=== PATIENT | female | born 1935 | race Caucasian/White ===

== ENCOUNTER 2019-01-06 17:40 | Inpatient (IN) | payer MEDICARE, BC, SELFPAY ==
--- NOTE | 2019-01-06 | DI.ECHO.S_ITS ---
[facility]---------+ [facility] +---------+ : : [address] : : : : [id number] : : : : Phone: [phone] Echocardiogram Report + + :Name: SHAHANA ROBLEDO Study Date: 01/07/2019 Height: 63 in : :[facility] Weight: 103 lb : : Gender: Female BSA: 1.5 m2 : :: 1935 Age: 83 yrs BP: 115/53 mmHg: :Reason For Study: Abnormal ECG : : Performed By: Gertrudis Walker : :Referring: GETACHEW LUQUE : + + Interpretation Summary The left ventricle is normal in size. The ejection fraction is estimated to be 65-70%. There has been no significant change in LVEF since the previous study. The right ventricle is grossly normal size. The right ventricular systolic function is normal. There is mild aortic regurgitation. Compared to the prior echo study, there has been no change in the severity of aortic regurgitation. There is mild to moderate tricuspid regurgitation. Compared to the prior echo exam, there has been an increase in TR severity. The right ventricular systolic pressure is estimated to be at least 34 mmHg based on an estimated right atrial pressure of 3 mm Hg. Multiple large left renal cysts were noted. Procedure: A two-dimensional transthoracic echocardiogram with color flow and Doppler was performed. The study quality was technically adequate. Comparison is made with the echocardiogram of 06-26-10. The patient was in normal sinus rhythm during the exam. Left Ventricle: The left ventricle is normal in size. There is normal left ventricular wall thickness. There is no thrombus. A false chord is noted (normal variant). The ejection fraction is estimated to be 65-70%. There has been no significant change since the previous study. There are no focal wall motion abnormalities. Diastolic parameters suggest a relaxation abnormality of the left ventricle, consistent with probable normal filling pressures. Right Ventricle: The right ventricle is grossly normal size. A calcified moderator band is seen in the right ventricle. The right ventricular systolic function is normal. Atria: The left atrial size is normal. The left atrium has significantly decreased in size since the prior echo exam. Right atrial size is normal. The interatrial septum is intact with no evidence for an atrial septal defect. Mitral Valve: There is mild mitral annular calcification. There is trace mitral regurgitation. Aortic Valve: The aortic valve is grossly normal. The aortic valve is not well visualized. The aortic valve opens well. There is no aortic valve stenosis. There is mild aortic regurgitation. Compared to the prior echo study, there has been no change in the severity of aortic regurgitation. Tricuspid Valve: The tricuspid valve leaflets are thin and pliable. There is mild to moderate tricuspid regurgitation. The right ventricular systolic pressure is estimated to be at least 34 mmHg based on an estimated right atrial pressure of 3 mm Hg. Compared to the prior echo exam, there has been an increase in TR severity. Pulmonic Valve: The pulmonic valve is not well visualized. Great Vessels: The aortic root is normal size. The dimensions of the ascending aorta are normal. The aortic arch is normal in size. The IVC is of normal diameter and collapses greater than 50% with a sniff. This suggests a low right atrial pressure of 3 mm Hg. Pericardium/ Pleura There is no pericardial effusion. There is no pleural effusion. MMode/2D Measurements & Calculations LVIDd: 3.8 cm Ao root diam: 2.9 cm LVIDs: 2.6 cm asc Aorta Diam: 3.0 cm FS: 32.1 % Ao Arch Diam (Prox Trans): 2.2 cm IVSd: 0.86 cm LVPWd: 0.75 cm LV nugent. diameter/BSA (cm/m^2): 2.6 LV sys. diameter/BSA (cm/m^2): 1.8 LA dimension: 2.2 cm RA long axis: 4.4 cm LA A2 area: 11.4 cm2 RA area: 15.1 cm2 LA A4 area: 12.1 cm2 RA vol: 44.3 ml LA length (vol): 5.0 cm RA : 30.4 ml/m2 LA vol: 23.3 ml IVC diam: 1.4 cm LA vol index: 16.0 ml/m2 RVDd major: 3.5 cm RVD1 (basal): 3.2 cm RVD2 (mid): 2.4 cm Doppler Measurements & Calculations Ao V2 max: 166.2 cm/sec MV E max rafiq: 49.2 cm/sec Ao V2 mean: 101.9 cm/sec MV A max rafiq: 64.0 cm/sec Ao max P.1 mmHg MV E/A: 0.77 Ao mean P.0 mmHg Med Peak E' Rafiq: 4.6 cm/sec Ao V2 VTI: 34.5 cm E/E' med: 10.6 Lat Peak E' Rafiq: 5.8 cm/sec E/E' lat: 8.5 E/e' average: 9.6 MV dec time: 0.29 sec MV P1/2t: 86.2 msec TR max rafiq: 277.0 cm/sec MV P1/2t max rafiq: 49.5 cm/sec TR max P.7 mmHg MVA(P1/2t): 2.6 cm2 PA V2 max: 67.1 cm/sec PA V2 mean: 40.0 cm/sec PA mean P.78 mmHg PA Accel Time: 0.17 sec Reading Physician:GIULIANO
[2019-01-06 17:49] VITALS: BP 174/86; PULSE 99; RESP 15; TEMP 37.2; O2SAT 93
--- NOTE | 2019-01-06 17:49 | DI.RAD.S_ITS ---
PROCEDURE: XR CHEST 2V INDICATIONS: chills, back pain TECHNIQUE: 2 views of the chest were acquired. COMPARISON: None. FINDINGS: Surgical changes and devices: Bilateral breast implants are noted. Lungs and pleura: Streaky opacity is present within the middle lobe as seen on lateral view. Mediastinum: Mediastinal contours are normal. Heart size is normal. Bones and chest wall: No suspicious bony abnormalities. Soft tissues appear unremarkable. IMPRESSION: Streaky middle lobe opacity seen on lateral view. While this could represent atelectasis, pneumonia should be considered. Dictated by: Celeste Waller M.D. on 01/06/2019 at 18:04 Approved by: Celeste Waller M.D. on 01/06/2019 at 18:05
--- NOTE | 2019-01-06 17:56 | PC.NURSE ---
Pt tells staff that she is allergic to everything. [facility] does not carry a list. Dr office is closed. Will attempt to get records from [facility] in [place]
--- NOTE | 2019-01-06 18:12 | ED.BACK ---
HPI - Back Pain/Injury <IGLESIA Padgett - Last Filed: 01/06/19 22:42> General Chief Complaint: Back Pain/Injury Stated Complaint: BODY ACHES, CHILLS, BACK PAIN Time Seen by Provider: 01/06/19 18:06 Source: patient and family Mode of arrival: ambulatory Limitations: no limitations History of Present Illness HPI Narrative: 83-year-old female with a history of pneumonia, hydronephrosis, chronic alcohol abuse, and low-sodium presents to the emergency department complaining of right lower back pain, productive cough, chest congestion, and decreased appetite over the past 2 days. Yesterday she had an episode of substernal chest pain that started when she was sitting down and lasted for few minutes, pain slightly resolved after taking nitro that she was given. States she has associated chills, nausea, decreased appetite, and dry heaves yesterday that has resolved today. Denies syncope, vomiting today, abdominal pain, dysuria, blood in urine, diaphoresis, chest pain today, blood in stool, or fevers today. Patient states that she had a cardiac workup a while ago in [place], she does not remember what it was for or what tests were done at that time. Related Data Home Medications Medication Instructions Recorded Confirmed aspirin 3 tab PO PRN PRN 01/06/19 01/06/19 levothyroxine 25 mcg PO DAILY 01/06/19 01/06/19 nitroglycerin 1 tab SUBLINGUAL [id number] PRN 01/06/19 01/06/19 Allergies Allergy/AdvReac Type Severity Reaction Status Date / Time gentamicin Allergy Hives Verified 01/06/19 22:07 Penicillins Allergy unknown Verified 01/06/19 22:07 sulfamethoxazole Allergy Hives Verified 01/06/19 22:07 trimethoprim Allergy Hives Verified 01/06/19 22:07 albuterol AdvReac SOB, Verified 01/06/19 22:07 shaking lisinopril AdvReac Angioedema Verified 01/06/19 22:07 morphine AdvReac difficult Verified 01/06/19 22:07 to wake and pt thought she was going to Review of Systems <IGLESIA Padgett - Last Filed: 01/06/19 22:42> Review of Systems REVIEW OF SYSTEMS: GENERAL: Complains of fevers, see HPI. HENT: No head trauma, hearing loss, rhinorrhea, epistaxis, sinus pressure, sore throat, or dysphagia. EYES: No loss of vision, double vision, eye pain, or irritation. CARDIOVASCULAR:Chest pain complaint, see HPI. RESPIRATORY: No shortness of breath, cough, or wheeze. GASTROINTESTINAL: C/o nausea and dry heaves, see HPI. GENITOURINARY: Right flank pain, NO urinary incontinence, hesitancy, frequency, or dysuria. No vaginal discharge or dyspareunia. MUSCULOSKELETAL: No pain, weakness, or deformities. INTEGUMENTARY: No rash, lesions, or pruritus. NEURO: No numbness, tingling, memory loss, confusion, or headaches. PSYCH: No behavior or mood changes. ENDOCRINOLOGY: No hair loss of temperature intolerance. HEMATOLOGY: No easy bruising. LYMPHATIC: No lymphadenopathy. PFSH <IGLESIA Padgett - Last Filed: 01/06/19 22:42> Medical History Asthma (Acute) Closed hip fracture (Acute) Coronary artery disease (Acute) HTN (hypertension) (Acute) Hydronephrosis (Acute) Hypothyroidism (Acute) Osteoporosis (Acute) Surgical History History of bilateral breast implants (Acute) History of breast biopsy (Acute) History of coronary angiogram (Acute) History of hip surgery (Acute) History of hysterectomy (Acute) History of renal stent (Acute) Status post removal of thyroid nodule (Acute) Family History (Updated 01/06/19 @ 21:56 by IGLESIA Moyer) Father Myocardial infarction Ruptured aortic aneurysm Mother Colon cancer Brother Medical history unknown Sister In good health Social History household members: none Smoking Status: Former smoker alcohol intake: current Family History Father Myocardial infarction Ruptured aortic aneurysm Mother Colon cancer Brother Medical history unknown Sister In good health Social History household members: none Smoking Status: Former smoker alcohol intake: current Exam <IGLESIA Padgett - Last Filed: 01/06/19 22:42> Initial Vital Signs Initial Vital Signs: Vital Signs Temperature 98.9 F 05/30/19 17:49 Pulse Rate 99 H 01/06/19 17:49 Respiratory Rate 15 01/06/19 17:49 Blood Pressure 174/86 H 01/06/19 17:49 Pulse Oximetry 93 01/06/19 17:49 PHYSICAL EXAMINATION: GENERAL: Well groomed, alert, and cooperative. Appears underweight. Answers questions promptly and appropriately. Vital signs noted. HENT: Normocephalic, atraumatic. Ear canals patent, tympanic membranes normal without irritation or effusion, crisp light reflex present. Oral mucosa is pink and moist, no caries or lesions present. Pharynx without erythema. EYES: PERRLA, EOMIs, conjunctiva pink, sclera white, no periorbital swelling. NECK: Full range of motion, nontender. LYMPH: No lymphadenopathy. CHEST: Normal to inspection and without deformities. CARDIOVASCULAR: S1 and S2 sounds normal. Regular rate and rhythm, no murmurs, clicks, or bruits. No pedal edema. RESPIRATORY: Normal respiratory rate, trachea midline, airway patent. No stridor, nasal flaring or accessory muscle use. Lungs are clear in all goff without wheeze, rhonchi, or crackles. GASTROINTESTINAL: Bowel sounds normoactive. Abdomen is soft and non-tender. No organomegaly. MUSCULOSKELETAL: Normal gait and coordination. Equal tone and mass bilaterally. No spinal tenderness or deformities. EXTREMITIES: CMS intact. No deformities. SKIN: Warm, dry, soft, appropriate color for ethnicity. No lesions, rashes, or wounds. NEURO: Alert and Oriented X 3. CN III-XII intact. Good coordination. No ataxia, or sensory deficits, or cognitive issues. PSYCH: Appropriate affect and mood. <Neal Mendez DO - Last Filed: 01/06/19 23:07> Initial Vital Signs Initial Vital Signs: Vital Signs Temperature 98.9 F 01/06/19 17:49 Pulse Rate 99 H 01/06/19 17:49 Respiratory Rate 15 01/06/19 17:49 Blood Pressure 174/86 H 01/06/19 17:49 Pulse Oximetry 93 01/06/19 17:49 Scores <IGLESIA Padgett - Last Filed: 01/06/19 22:42> HEART Score Heart Score history: Moderately Suspicious Heart Score EKG: Non-Specific repolarization disturbance Heart Score Age: > or = 65 years old Heart Score risk factors: 1-2 risk factors Heart Score troponin: < or = to normal limit Heart Score Total: 5 Course <Carleen IGLESIA Edi - Last Filed: 01/06/19 22:42> Decision to Admit Date: 01/06/19 Decision to Admit time: 20:30 Orders Ordered: ED Orders 01/06/19 17:49 CXR [XR chest 2V] Stat 01/06/19 18:35 EKG-12 Lead Stat 01/06/19 18:45 Complete Blood Count AUTO DIFF Stat Comprehensive Metabolic Panel Stat Troponin & CK Cardiac Panel Stat 01/06/19 21:31 Consult to Dietitian, Adult Routine 01/06/19 21:32 Consult to Discharge Planning Routine 01/06/19 21:42 Consult to Respiratory Therapy Evaluate & Treat 01/06/19 21:45 Procalcitonin Routine Urine Microscopic Routine 01/06/19 23:55 Partial Thromboplastin Time Urgent Prothrombin Time INR Urgent 01/07/19 Basic Metabolic Panel Routine Complete Blood Count AUTO DIFF Routine Lipid Panel Routine Procalcitonin Routine TSH w/ Reflex to FT4 Routine Troponin I Routine Acetaminophen (Tylenol) 650 mg PO Q6HR PRN PRN Reason: As Needed for Fever/Mild Pain Al Hydrox/Mg Hydrox/Simethicone (Maalox Plus) 30 ml PO Q6HR PRN PRN Reason: Dyspepsia Albuterol (Ventolin) 2.5 mg INH [id number] PRN PRN Reason: Shortness Of Breath Albuterol/Ipratropium (Duoneb) 3 ml INH RTQ6HR PRN PRN Reason: Shortness Of Breath Aspirin (Aspirin Ec) 81 mg PO DAILY [facility] Last Admin: 01/06/19 22:57 Dose: 81 mg Calcium Carbonate (Tums) 1,000 mg PO Q4HR PRN PRN Reason: Dyspepsia Enoxaparin Sodium (Lovenox) 40 mg SUBCUT DAILY [facility] Levofloxacin (Levaquin) 750 mg in 150 mls @ 100 mls/hr IV Q24H [facility] Last Admin: 01/06/19 22:57 Dose: 100 mls/hr Sodium Chloride (Normal Saline 0.9%) 1,000 mls @ 75 mls/hr IV CONT [facility] Last Admin: 01/06/19 22:57 Dose: 75 mls/hr Levothyroxine Sodium (Synthroid) 25 mcg PO DAILY [facility] Naloxone HCl (Narcan) 0.2 mg IV Q2MIN PRN PRN Reason: Opiate Reversal Nitroglycerin (Nitrostat) 0.4 mg SL [id number] PRN PRN Reason: Chest Pain Ondansetron HCl (Zofran) 4 mg IV Q8HR PRN PRN Reason: Nausea And Vomiting Discontinued Medications Sodium Chloride (Normal Saline 0.9%) 1,000 mls @ 500 mls/hr IV BOLUS ONE Stop: 01/06/19 20:34 Last Infusion: 01/06/19 20:52 Dose: 0 mls/hr Admin: 01/06/19 18:50 Dose: 500 mls/hr Morphine Sulfate (Morphine) 2 mg IV Q4HR PRN PRN Reason: Pain, Moderate (4-6) Consultations Consultation #1: Consulted Dr. Knight at [facility] concerning EKG changes (ST depression in V4 and V5). Discussed inability to obtain previous records from clinic in [place]. Discussed patient's risk factors. He agrees that patient could benefit from admission and further testing. Time: 20:00 Consultation #2: Spoke with Aldo Tomlinson about possible admit. Discussed EKG changes and inability to obtain records, discussed patient's risk factors, discussed patient's labs. Decision to admit made. Time: 20:30 Time: 19:00 Additional Consultation(s): Patient staffed with Dr. Mendez who agrees with plan. Vital Signs - 8 hr 01/06/19 17:49 01/06/19 21:16 01/06/19 21:30 Temperature 98.9 F 98.2 F Pulse Rate 99 H 95 H 100 H Respiratory Rate 15 18 20 Blood Pressure 174/86 H 163/82 H 168/86 H Pulse Oximetry 93 93 93 <Neal Mendez, DO - Last Filed: 01/06/19 23:07> Orders Ordered: ED Orders 01/06/19 17:49 CXR [XR chest 2V] Stat 01/06/19 18:35 EKG-12 Lead Stat 01/06/19 18:45 Complete Blood Count AUTO DIFF Stat Comprehensive Metabolic Panel Stat Troponin & CK Cardiac Panel Stat 01/06/19 21:31 Consult to Dietitian, Adult Routine 01/06/19 21:32 Consult to Discharge Planning Routine 01/06/19 21:42 Consult to Respiratory Therapy Evaluate & Treat 01/06/19 21:45 Procalcitonin Routine Urine Microscopic Routine 01/06/19 23:55 Partial Thromboplastin Time Urgent Prothrombin Time INR Urgent 01/07/19 Basic Metabolic Panel Routine Complete Blood Count AUTO DIFF Routine Lipid Panel Routine Procalcitonin Routine TSH w/ Reflex to FT4 Routine Troponin I Routine Acetaminophen (Tylenol) 650 mg PO Q6HR PRN PRN Reason: As Needed for Fever/Mild Pain Al Hydrox/Mg Hydrox/Simethicone (Maalox Plus) 30 ml PO Q6HR PRN PRN Reason: Dyspepsia Albuterol (Ventolin) 2.5 mg INH [id number] PRN PRN Reason: Shortness Of Breath Albuterol/Ipratropium (Duoneb) 3 ml INH RTQ6HR PRN PRN Reason: Shortness Of Breath Aspirin (Aspirin Ec) 81 mg PO DAILY [facility] Last Admin: 01/06/19 22:57 Dose: 81 mg Calcium Carbonate (Tums) 1,000 mg PO Q4HR PRN PRN Reason: Dyspepsia Enoxaparin Sodium (Lovenox) 40 mg SUBCUT DAILY [facility] Levofloxacin (Levaquin) 750 mg in 150 mls @ 100 mls/hr IV Q24H [facility] Last Admin: 01/06/19 22:57 Dose: 100 mls/hr Sodium Chloride (Normal Saline 0.9%) 1,000 mls @ 75 mls/hr IV CONT [facility] Last Admin: 01/06/19 22:57 Dose: 75 mls/hr Levothyroxine Sodium (Synthroid) 25 mcg PO DAILY [facility] Naloxone HCl (Narcan) 0.2 mg IV Q2MIN PRN PRN Reason: Opiate Reversal Nitroglycerin (Nitrostat) 0.4 mg SL [id number] PRN PRN Reason: Chest Pain Ondansetron HCl (Zofran) 4 mg IV Q8HR PRN PRN Reason: Nausea And Vomiting Discontinued Medications Sodium Chloride (Normal Saline 0.9%) 1,000 mls @ 500 mls/hr IV BOLUS ONE Stop: 01/06/19 20:34 Last Infusion: 01/06/19 20:52 Dose: 0 mls/hr Admin: 01/06/19 18:50 Dose: 500 mls/hr Morphine Sulfate (Morphine) 2 mg IV Q4HR PRN PRN Reason: Pain, Moderate (4-6) Vital Signs - 8 hr 01/06/19 17:49 01/06/19 21:16 01/06/19 21:30 Temperature 98.9 F 98.2 F Pulse Rate 99 H 95 H 100 H Respiratory Rate 15 18 20 Blood Pressure 174/86 H 163/82 H 168/86 H Pulse Oximetry 93 93 93 MDM - Back Pain/Injury <IGLESIA Padgett - Last Filed: 01/06/19 22:42> Medical Records Attestation: I reviewed the patient's medical records. Lab Data Attestation: I reviewed the patient's lab results. Result diagrams: 01/06/19 18:45 01/06/19 18:45 Lab Results 01/06/19 01/06/19 01/06/19 Range/Units 18:45 18:45 21:45 WBC 10.9 (4.5-11.0) X10^3/uL RBC 4.15 (4.0-5.2) X10^6/uL Hgb 13.0 (12.0-16.0) g/dL Hct 39.0 (36-46) % MCV 94.1 (80-100) fL MCH 31.4 (26-34) PG MCHC 33.4 (30-36) % RDW 12.6 (11.6-14.8) % Plt Count 282 (150-400) X10^3/uL Neut % (Auto) 86.7 H (50-75) % Lymph % (Auto) 7.9 L (25-40) % [place] % (Auto) 5.1 (3-14) % Eos % (Auto) 0.0 L (2-4) % Baso % (Auto) 0.3 (0-2) % Neut # (Auto) 9500 H (4543-2547) /uL Lymph # (Auto) 900 L (9850-9459) /uL [place] # (Auto) 600 (0-900) /uL Eos # (Auto) 0 (0-450) /uL Baso # (Auto) 0 (0-100) /uL Sodium 131 L (137-145) mmol/L Potassium 4.0 (3.4-5.1) mmol/L Chloride 93 L (98-107) mmol/L Carbon Dioxide 26 (22-32) mmol/L BUN 12 (7-17) mg/dL Creatinine 0.70 (0.52-1.04) mg/dL Estimated GFR > 60.0 (>60) mL/min BUN/Creatinine Ratio 17.1 (6-22) Glucose 148 H (80-110) mg/dL Calcium 9.4 (8.4-10.2) mg/dL Total Bilirubin 1.4 H (0.2-1.3) mg/dL AST 25 (14-36) IU/L ALT 13 (9-52) IU/L Alkaline Phosphatase 78 (38-126) U/L Total Creatine Kinase 36 (30-135) U/L CK-MB (CK-2) TNP CK-MB (CK-2) Rel Index TNP Troponin I < 0.012 (0.01-0.034) ng/mL Total Protein 8.0 (6.3-8.2) g/dL Albumin 4.3 (3.5-5.0) g/dL Globulin 3.7 (1.7-4.1) g/dL Albumin/Globulin Ratio 1.2 (1.0-2.8) Urine RBC 0-1/hpf (0-5/HPF) Urine WBC 0-1/hpf (0-5/HPF) Ur Squamous Epith Cells 1-5 /hpf (0-5/HPF) Urine Bacteria Occasional (0-1) (None) Ur Culture Indicated? Cult not indicated Imaging Data Chest x-ray: Radiologist's impression: [address] [place] [id number] XRay Report Signed Patient: Grisel Puri#: [id number] : 1935Acct:[id number] Age/Sex: 83 / FDate of Service: 01/06/19 Loc: ED Accession Number: [id number] Procedure: XR chest 2V Ordering Provider: Carol Fierro MD PROCEDURE: XR CHEST 2V INDICATIONS: chills, back pain TECHNIQUE: 2 views of the chest were acquired. COMPARISON: None. FINDINGS: Surgical changes and devices: Bilateral breast implants are noted. Lungs and pleura: Streaky opacity is present within the middle lobe as seen on lateral view. Mediastinum: Mediastinal contours are normal. Heart size is normal. Bones and chest wall: No suspicious bony abnormalities. Soft tissues appear unremarkable. IMPRESSION: Streaky middle lobe opacity seen on lateral view. While this could represent atelectasis, pneumonia should be considered. Dictated by: Celeste Waller M.D. on 01/06/2019 at 18:04 Approved by: Celeste Waller M.D. on 01/06/2019 at 18:05 ECG Data Attestation: I personally reviewed and interpreted this ECG as follows: Interpretation: Rate of 79, LA interval 162, QTC 414. No axis deviation regular rate and rhythm. No ST elevation however ST depression noted in V4 and V5. This is a change from an old EKG done in 2008. Appropriate consults made. Dr. Mendez also reviewed EKG. [facility] Narrative Medical decision making narrative: Patient does not clinically appear to have pneumonia even though consolidation was shown on chest x-ray, due to absence of white blood cell count, absence of abnormal breath sounds, afebrile. However concern for acute coronary syndrome exists due to ST depression in V4 and V5, chest pain that was relieved with nitro, history of cardiac workups, risk factors of alcohol abuse, age, and history at hypertension as well as blood pressure measurements in the emergency department. After speaking with Dr. Knight with [facility] cardiology, consensus was that patient would benefit from admission and observation with possible further testing. <eNal Mendez, DO - Last Filed: 01/06/19 23:07> Lab Data Lab Results 01/06/19 01/06/19 01/06/19 Range/Units 18:45 18:45 21:45 WBC 10.9 (4.5-11.0) X10^3/uL RBC 4.15 (4.0-5.2) X10^6/uL Hgb 13.0 (12.0-16.0) g/dL Hct 39.0 (36-46) % MCV 94.1 (80-100) fL MCH 31.4 (26-34) PG MCHC 33.4 (30-36) % RDW 12.6 (11.6-14.8) % Plt Count 282 (150-400) X10^3/uL Neut % (Auto) 86.7 H (50-75) % Lymph % (Auto) 7.9 L (25-40) % [place] % (Auto) 5.1 (3-14) % Eos % (Auto) 0.0 L (2-4) % Baso % (Auto) 0.3 (0-2) % Neut # (Auto) 9500 H (7244-3529) /uL Lymph # (Auto) 900 L (5368-3632) /uL [place] # (Auto) 600 (0-900) /uL Eos # (Auto) 0 (0-450) /uL Baso # (Auto) 0 (0-100) /uL Sodium 131 L (137-145) mmol/L Potassium 4.0 (3.4-5.1) mmol/L Chloride 93 L (98-107) mmol/L Carbon Dioxide 26 (22-32) mmol/L BUN 12 (7-17) mg/dL Creatinine 0.70 (0.52-1.04) mg/dL Estimated GFR > 60.0 (>60) mL/min BUN/Creatinine Ratio 17.1 (6-22) Glucose 148 H (80-110) mg/dL Calcium 9.4 (8.4-10.2) mg/dL Total Bilirubin 1.4 H (0.2-1.3) mg/dL AST 25 (14-36) IU/L ALT 13 (9-52) IU/L Alkaline Phosphatase 78 (38-126) U/L Total Creatine Kinase 36 (30-135) U/L CK-MB (CK-2) TNP CK-MB (CK-2) Rel Index TNP Troponin I < 0.012 (0.01-0.034) ng/mL Total Protein 8.0 (6.3-8.2) g/dL Albumin 4.3 (3.5-5.0) g/dL Globulin 3.7 (1.7-4.1) g/dL Albumin/Globulin Ratio 1.2 (1.0-2.8) Urine RBC 0-1/hpf (0-5/HPF) Urine WBC 0-1/hpf (0-5/HPF) Ur Squamous Epith Cells 1-5 /hpf (0-5/HPF) Urine Bacteria Occasional (0-1) (None) Ur Culture Indicated? Cult not indicated Discharge Plan Departure Patient Disposition: Admitted as Observation Clinical Impression: Abnormal EKG, Lung consolidation Chest pain Qualifiers: Chest pain type: unspecified Qualified Code(s): R07.9 - Chest pain, unspecified Discharge Date/Time: 01/06/19 21:27 Interventions: ED Discharge Assessment Last Done: 01/06/19 21:16 Admit Date/Time: 01/06/19 20:51 Admit Provider: Masoud Tomlinson <Neal Mendez DO - Last Filed: 01/06/19 23:07> Cosign ED Attending Luisa Attestation: I was available for consultation during this patient's emergency department encounter
--- NOTE | 2019-01-06 18:43 | ED_ITS ---
HPI - Back Pain/Injury <IGLESIA Padgett - Last Filed: 01/06/19 22:42> General Chief Complaint: Back Pain/Injury Stated Complaint: BODY ACHES, CHILLS, BACK PAIN Time Seen by Provider: 01/06/19 18:06 Source: patient and family Mode of arrival: ambulatory Limitations: no limitations History of Present Illness HPI Narrative: 83-year-old female with a history of pneumonia, hydronephrosis, chronic alcohol abuse, and low-sodium presents to the emergency department complaining of right lower back pain, productive cough, chest congestion, and decreased appetite over the past 2 days. Yesterday she had an episode of substernal chest pain that started when she was sitting down and lasted for few minutes, pain slightly resolved after taking nitro that she was given. States she has associated chills, nausea, decreased appetite, and dry heaves yesterday that has resolved today. Denies syncope, vomiting today, abdominal pain, dysuria, blood in urine, diaphoresis, chest pain today, blood in stool, or fevers today. Patient states that she had a cardiac workup a while ago in [place], she does not remember what it was for or what tests were done at that time. Related Data Home Medications Medication Instructions Recorded Confirmed aspirin 3 tab PO PRN PRN 01/06/19 01/06/19 levothyroxine 25 mcg PO DAILY 01/06/19 01/06/19 nitroglycerin 1 tab SUBLINGUAL [id number] PRN 01/06/19 01/06/19 Allergies Allergy/AdvReac Type Severity Reaction Status Date / Time gentamicin Allergy Hives Verified 01/06/19 22:07 Penicillins Allergy unknown Verified 01/06/19 22:07 sulfamethoxazole Allergy Hives Verified 01/06/19 22:07 trimethoprim Allergy Hives Verified 01/06/19 22:07 albuterol AdvReac SOB, Verified 01/06/19 22:07 shaking lisinopril AdvReac Angioedema Verified 01/06/19 22:07 morphine AdvReac difficult Verified 01/06/19 22:07 to wake and pt thought she was going to Review of Systems <IGLESIA Padgett - Last Filed: 01/06/19 22:42> Review of Systems REVIEW OF SYSTEMS: GENERAL: Complains of fevers, see HPI. HENT: No head trauma, hearing loss, rhinorrhea, epistaxis, sinus pressure, sore throat, or dysphagia. EYES: No loss of vision, double vision, eye pain, or irritation. CARDIOVASCULAR:Chest pain complaint, see HPI. RESPIRATORY: No shortness of breath, cough, or wheeze. GASTROINTESTINAL: C/o nausea and dry heaves, see HPI. GENITOURINARY: Right flank pain, NO urinary incontinence, hesitancy, frequency, or dysuria. No vaginal discharge or dyspareunia. MUSCULOSKELETAL: No pain, weakness, or deformities. INTEGUMENTARY: No rash, lesions, or pruritus. NEURO: No numbness, tingling, memory loss, confusion, or headaches. PSYCH: No behavior or mood changes. ENDOCRINOLOGY: No hair loss of temperature intolerance. HEMATOLOGY: No easy bruising. LYMPHATIC: No lymphadenopathy. PFSH <IGLESIA Padgett - Last Filed: 01/06/19 22:42> Medical History Asthma (Acute) Closed hip fracture (Acute) Coronary artery disease (Acute) HTN (hypertension) (Acute) Hydronephrosis (Acute) Hypothyroidism (Acute) Osteoporosis (Acute) Surgical History History of bilateral breast implants (Acute) History of breast biopsy (Acute) History of coronary angiogram (Acute) History of hip surgery (Acute) History of hysterectomy (Acute) History of renal stent (Acute) Status post removal of thyroid nodule (Acute) Family History (Updated 01/06/19 @ 21:56 by IGLESIA Moyer) Father Myocardial infarction Ruptured aortic aneurysm Mother Colon cancer Brother Medical history unknown Sister In good health Social History household members: none Smoking Status: Former smoker alcohol intake: current Family History Father Myocardial infarction Ruptured aortic aneurysm Mother Colon cancer Brother Medical history unknown Sister In good health Social History household members: none Smoking Status: Former smoker alcohol intake: current Exam <IGLESIA Padgett - Last Filed: 01/06/19 22:42> Initial Vital Signs Initial Vital Signs: Vital Signs Temperature 98.9 F 05/30/19 17:49 Pulse Rate 99 H 01/06/19 17:49 Respiratory Rate 15 01/06/19 17:49 Blood Pressure 174/86 H 01/06/19 17:49 Pulse Oximetry 93 01/06/19 17:49 PHYSICAL EXAMINATION: GENERAL: Well groomed, alert, and cooperative. Appears underweight. Answers questions promptly and appropriately. Vital signs noted. HENT: Normocephalic, atraumatic. Ear canals patent, tympanic membranes normal without irritation or effusion, crisp light reflex present. Oral mucosa is pink and moist, no caries or lesions present. Pharynx without erythema. EYES: PERRLA, EOMIs, conjunctiva pink, sclera white, no periorbital swelling. NECK: Full range of motion, nontender. LYMPH: No lymphadenopathy. CHEST: Normal to inspection and without deformities. CARDIOVASCULAR: S1 and S2 sounds normal. Regular rate and rhythm, no murmurs, clicks, or bruits. No pedal edema. RESPIRATORY: Normal respiratory rate, trachea midline, airway patent. No stridor, nasal flaring or accessory muscle use. Lungs are clear in all goff without wheeze, rhonchi, or crackles. GASTROINTESTINAL: Bowel sounds normoactive. Abdomen is soft and non-tender. No organomegaly. MUSCULOSKELETAL: Normal gait and coordination. Equal tone and mass bilaterally. No spinal tenderness or deformities. EXTREMITIES: CMS intact. No deformities. SKIN: Warm, dry, soft, appropriate color for ethnicity. No lesions, rashes, or wounds. NEURO: Alert and Oriented X 3. CN III-XII intact. Good coordination. No ataxia, or sensory deficits, or cognitive issues. PSYCH: Appropriate affect and mood. <Neal Mendez DO - Last Filed: 01/06/19 23:07> Initial Vital Signs Initial Vital Signs: Vital Signs Temperature 98.9 F 01/06/19 17:49 Pulse Rate 99 H 01/06/19 17:49 Respiratory Rate 15 01/06/19 17:49 Blood Pressure 174/86 H 01/06/19 17:49 Pulse Oximetry 93 01/06/19 17:49 Scores <IGLESIA Padgett - Last Filed: 01/06/19 22:42> HEART Score Heart Score history: Moderately Suspicious Heart Score EKG: Non-Specific repolarization disturbance Heart Score Age: > or = 65 years old Heart Score risk factors: 1-2 risk factors Heart Score troponin: < or = to normal limit Heart Score Total: 5 Course <Carleen IGLESIA Eid - Last Filed: 01/06/19 22:42> Decision to Admit Date: 01/06/19 Decision to Admit time: 20:30 Orders Ordered: ED Orders 01/06/19 17:49 CXR [XR chest 2V] Stat 01/06/19 18:35 EKG-12 Lead Stat 01/06/19 18:45 Complete Blood Count AUTO DIFF Stat Comprehensive Metabolic Panel Stat Troponin & CK Cardiac Panel Stat 01/06/19 21:31 Consult to Dietitian, Adult Routine 01/06/19 21:32 Consult to Discharge Planning Routine 01/06/19 21:42 Consult to Respiratory Therapy Evaluate & Treat 01/06/19 21:45 Procalcitonin Routine Urine Microscopic Routine 01/06/19 23:55 Partial Thromboplastin Time Urgent Prothrombin Time INR Urgent 01/07/19 Basic Metabolic Panel Routine Complete Blood Count AUTO DIFF Routine Lipid Panel Routine Procalcitonin Routine TSH w/ Reflex to FT4 Routine Troponin I Routine Acetaminophen (Tylenol) 650 mg PO Q6HR PRN PRN Reason: As Needed for Fever/Mild Pain Al Hydrox/Mg Hydrox/Simethicone (Maalox Plus) 30 ml PO Q6HR PRN PRN Reason: Dyspepsia Albuterol (Ventolin) 2.5 mg INH [id number] PRN PRN Reason: Shortness Of Breath Albuterol/Ipratropium (Duoneb) 3 ml INH RTQ6HR PRN PRN Reason: Shortness Of Breath Aspirin (Aspirin Ec) 81 mg PO DAILY [facility] Last Admin: 01/06/19 22:57 Dose: 81 mg Calcium Carbonate (Tums) 1,000 mg PO Q4HR PRN PRN Reason: Dyspepsia Enoxaparin Sodium (Lovenox) 40 mg SUBCUT DAILY [facility] Levofloxacin (Levaquin) 750 mg in 150 mls @ 100 mls/hr IV Q24H [facility] Last Admin: 01/06/19 22:57 Dose: 100 mls/hr Sodium Chloride (Normal Saline 0.9%) 1,000 mls @ 75 mls/hr IV CONT [facility] Last Admin: 01/06/19 22:57 Dose: 75 mls/hr Levothyroxine Sodium (Synthroid) 25 mcg PO DAILY [facility] Naloxone HCl (Narcan) 0.2 mg IV Q2MIN PRN PRN Reason: Opiate Reversal Nitroglycerin (Nitrostat) 0.4 mg SL [id number] PRN PRN Reason: Chest Pain Ondansetron HCl (Zofran) 4 mg IV Q8HR PRN PRN Reason: Nausea And Vomiting Discontinued Medications Sodium Chloride (Normal Saline 0.9%) 1,000 mls @ 500 mls/hr IV BOLUS ONE Stop: 01/06/19 20:34 Last Infusion: 01/06/19 20:52 Dose: 0 mls/hr Admin: 01/06/19 18:50 Dose: 500 mls/hr Morphine Sulfate (Morphine) 2 mg IV Q4HR PRN PRN Reason: Pain, Moderate (4-6) Consultations Consultation #1: Consulted Dr. Knight at [facility] concerning EKG changes (ST depression in V4 and V5). Discussed inability to obtain previous records from clinic in [place]. Discussed patient's risk factors. He agrees that patient could benefit from admission and further testing. Time: 20:00 Consultation #2: Spoke with Aldo Tomlinson about possible admit. Discussed EKG changes and inability to obtain records, discussed patient's risk factors, discussed patient's labs. Decision to admit made. Time: 20:30 Time: 19:00 Additional Consultation(s): Patient staffed with Dr. Mendez who agrees with plan. Vital Signs - 8 hr 01/06/19 17:49 01/06/19 21:16 01/06/19 21:30 Temperature 98.9 F 98.2 F Pulse Rate 99 H 95 H 100 H Respiratory Rate 15 18 20 Blood Pressure 174/86 H 163/82 H 168/86 H Pulse Oximetry 93 93 93 <Neal Mendez, DO - Last Filed: 01/06/19 23:07> Orders Ordered: ED Orders 01/06/19 17:49 CXR [XR chest 2V] Stat 01/06/19 18:35 EKG-12 Lead Stat 01/06/19 18:45 Complete Blood Count AUTO DIFF Stat Comprehensive Metabolic Panel Stat Troponin & CK Cardiac Panel Stat 01/06/19 21:31 Consult to Dietitian, Adult Routine 01/06/19 21:32 Consult to Discharge Planning Routine 01/06/19 21:42 Consult to Respiratory Therapy Evaluate & Treat 01/06/19 21:45 Procalcitonin Routine Urine Microscopic Routine 01/06/19 23:55 Partial Thromboplastin Time Urgent Prothrombin Time INR Urgent 01/07/19 Basic Metabolic Panel Routine Complete Blood Count AUTO DIFF Routine Lipid Panel Routine Procalcitonin Routine TSH w/ Reflex to FT4 Routine Troponin I Routine Acetaminophen (Tylenol) 650 mg PO Q6HR PRN PRN Reason: As Needed for Fever/Mild Pain Al Hydrox/Mg Hydrox/Simethicone (Maalox Plus) 30 ml PO Q6HR PRN PRN Reason: Dyspepsia Albuterol (Ventolin) 2.5 mg INH [id number] PRN PRN Reason: Shortness Of Breath Albuterol/Ipratropium (Duoneb) 3 ml INH RTQ6HR PRN PRN Reason: Shortness Of Breath Aspirin (Aspirin Ec) 81 mg PO DAILY [facility] Last Admin: 01/06/19 22:57 Dose: 81 mg Calcium Carbonate (Tums) 1,000 mg PO Q4HR PRN PRN Reason: Dyspepsia Enoxaparin Sodium (Lovenox) 40 mg SUBCUT DAILY [facility] Levofloxacin (Levaquin) 750 mg in 150 mls @ 100 mls/hr IV Q24H [facility] Last Admin: 01/06/19 22:57 Dose: 100 mls/hr Sodium Chloride (Normal Saline 0.9%) 1,000 mls @ 75 mls/hr IV CONT [facility] Last Admin: 01/06/19 22:57 Dose: 75 mls/hr Levothyroxine Sodium (Synthroid) 25 mcg PO DAILY [facility] Naloxone HCl (Narcan) 0.2 mg IV Q2MIN PRN PRN Reason: Opiate Reversal Nitroglycerin (Nitrostat) 0.4 mg SL [id number] PRN PRN Reason: Chest Pain Ondansetron HCl (Zofran) 4 mg IV Q8HR PRN PRN Reason: Nausea And Vomiting Discontinued Medications Sodium Chloride (Normal Saline 0.9%) 1,000 mls @ 500 mls/hr IV BOLUS ONE Stop: 01/06/19 20:34 Last Infusion: 01/06/19 20:52 Dose: 0 mls/hr Admin: 01/06/19 18:50 Dose: 500 mls/hr Morphine Sulfate (Morphine) 2 mg IV Q4HR PRN PRN Reason: Pain, Moderate (4-6) Vital Signs - 8 hr 01/06/19 17:49 01/06/19 21:16 01/06/19 21:30 Temperature 98.9 F 98.2 F Pulse Rate 99 H 95 H 100 H Respiratory Rate 15 18 20 Blood Pressure 174/86 H 163/82 H 168/86 H Pulse Oximetry 93 93 93 MDM - Back Pain/Injury <IGLESIA Padgett - Last Filed: 01/06/19 22:42> Medical Records Attestation: I reviewed the patient's medical records. Lab Data Attestation: I reviewed the patient's lab results. Result diagrams: 01/06/19 18:45 01/06/19 18:45 Lab Results 01/06/19 01/06/19 01/06/19 Range/Units 18:45 18:45 21:45 WBC 10.9 (4.5-11.0) X10^3/uL RBC 4.15 (4.0-5.2) X10^6/uL Hgb 13.0 (12.0-16.0) g/dL Hct 39.0 (36-46) % MCV 94.1 (80-100) fL MCH 31.4 (26-34) PG MCHC 33.4 (30-36) % RDW 12.6 (11.6-14.8) % Plt Count 282 (150-400) X10^3/uL Neut % (Auto) 86.7 H (50-75) % Lymph % (Auto) 7.9 L (25-40) % [place] % (Auto) 5.1 (3-14) % Eos % (Auto) 0.0 L (2-4) % Baso % (Auto) 0.3 (0-2) % Neut # (Auto) 9500 H (5426-8066) /uL Lymph # (Auto) 900 L (9156-2670) /uL [place] # (Auto) 600 (0-900) /uL Eos # (Auto) 0 (0-450) /uL Baso # (Auto) 0 (0-100) /uL Sodium 131 L (137-145) mmol/L Potassium 4.0 (3.4-5.1) mmol/L Chloride 93 L (98-107) mmol/L Carbon Dioxide 26 (22-32) mmol/L BUN 12 (7-17) mg/dL Creatinine 0.70 (0.52-1.04) mg/dL Estimated GFR > 60.0 (>60) mL/min BUN/Creatinine Ratio 17.1 (6-22) Glucose 148 H (80-110) mg/dL Calcium 9.4 (8.4-10.2) mg/dL Total Bilirubin 1.4 H (0.2-1.3) mg/dL AST 25 (14-36) IU/L ALT 13 (9-52) IU/L Alkaline Phosphatase 78 (38-126) U/L Total Creatine Kinase 36 (30-135) U/L CK-MB (CK-2) TNP CK-MB (CK-2) Rel Index TNP Troponin I < 0.012 (0.01-0.034) ng/mL Total Protein 8.0 (6.3-8.2) g/dL Albumin 4.3 (3.5-5.0) g/dL Globulin 3.7 (1.7-4.1) g/dL Albumin/Globulin Ratio 1.2 (1.0-2.8) Urine RBC 0-1/hpf (0-5/HPF) Urine WBC 0-1/hpf (0-5/HPF) Ur Squamous Epith Cells 1-5 /hpf (0-5/HPF) Urine Bacteria Occasional (0-1) (None) Ur Culture Indicated? Cult not indicated Imaging Data Chest x-ray: Radiologist's impression: [address] [place] [id number] XRay Report Signed Patient: Grisel Puri#: [id number] : 1935Acct:[id number] Age/Sex: 83 / FDate of Service: 01/06/19 Loc: ED Accession Number: [id number] Procedure: XR chest 2V Ordering Provider: Carol Fierro MD PROCEDURE: XR CHEST 2V INDICATIONS: chills, back pain TECHNIQUE: 2 views of the chest were acquired. COMPARISON: None. FINDINGS: Surgical changes and devices: Bilateral breast implants are noted. Lungs and pleura: Streaky opacity is present within the middle lobe as seen on lateral view. Mediastinum: Mediastinal contours are normal. Heart size is normal. Bones and chest wall: No suspicious bony abnormalities. Soft tissues appear unremarkable. IMPRESSION: Streaky middle lobe opacity seen on lateral view. While this could represent atelectasis, pneumonia should be considered. Dictated by: Celeste Waller M.D. on 01/06/2019 at 18:04 Approved by: Celeste Waller M.D. on 01/06/2019 at 18:05 ECG Data Attestation: I personally reviewed and interpreted this ECG as follows: Interpretation: Rate of 79, KS interval 162, QTC 414. No axis deviation regular rate and rhythm. No ST elevation however ST depression noted in V4 and V5. This is a change from an old EKG done in 2008. Appropriate consults made. Dr. Mendez also reviewed EKG. [facility] Narrative Medical decision making narrative: Patient does not clinically appear to have pneumonia even though consolidation was shown on chest x-ray, due to absence of white blood cell count, absence of abnormal breath sounds, afebrile. However concern for acute coronary syndrome exists due to ST depression in V4 and V5, chest pain that was relieved with nitro, history of cardiac workups, risk factors of alcohol abuse, age, and history at hypertension as well as blood pressure measurements in the emergency department. After speaking with Dr. Knight with [facility] cardiology, consensus was that patient would benefit from admi ssion and observation with possible further testing. <Neal Mendez, DO - Last Filed: 01/06/19 23:07> Lab Data Lab Results 01/06/19 01/06/19 01/06/19 Range/Units 18:45 18:45 21:45 WBC 10.9 (4.5-11.0) X10^3/uL RBC 4.15 (4.0-5.2) X10^6/uL Hgb 13.0 (12.0-16.0) g/dL Hct 39.0 (36-46) % MCV 94.1 (80-100) fL MCH 31.4 (26-34) PG MCHC 33.4 (30-36) % RDW 12.6 (11.6-14.8) % Plt Count 282 (150-400) X10^3/uL Neut % (Auto) 86.7 H (50-75) % Lymph % (Auto) 7.9 L (25-40) % [place] % (Auto) 5.1 (3-14) % Eos % (Auto) 0.0 L (2-4) % Baso % (Auto) 0.3 (0-2) % Neut # (Auto) 9500 H (8722-7150) /uL Lymph # (Auto) 900 L (1556-2031) /uL [place] # (Auto) 600 (0-900) /uL Eos # (Auto) 0 (0-450) /uL Baso # (Auto) 0 (0-100) /uL Sodium 131 L (137-145) mmol/L Potassium 4.0 (3.4-5.1) mmol/L Chloride 93 L (98-107) mmol/L Carbon Dioxide 26 (22-32) mmol/L BUN 12 (7-17) mg/dL Creatinine 0.70 (0.52-1.04) mg/dL Estimated GFR > 60.0 (>60) mL/min BUN/Creatinine Ratio 17.1 (6-22) Glucose 148 H (80-110) mg/dL Calcium 9.4 (8.4-10.2) mg/dL Total Bilirubin 1.4 H (0.2-1.3) mg/dL AST 25 (14-36) IU/L ALT 13 (9-52) IU/L Alkaline Phosphatase 78 (38-126) U/L Total Creatine Kinase 36 (30-135) U/L CK-MB (CK-2) TNP CK-MB (CK-2) Rel Index TNP Troponin I < 0.012 (0.01-0.034) ng/mL Total Protein 8.0 (6.3-8.2) g/dL Albumin 4.3 (3.5-5.0) g/dL Globulin 3.7 (1.7-4.1) g/dL Albumin/Globulin Ratio 1.2 (1.0-2.8) Urine RBC 0-1/hpf (0-5/HPF) Urine WBC 0-1/hpf (0-5/HPF) Ur Squamous Epith Cells 1-5 /hpf (0-5/HPF) Urine Bacteria Occasional (0-1) (None) Ur Culture Indicated? Cult not indicated Discharge Plan Departure Patient Disposition: Admitted as Observation Clinical Impression: Abnormal EKG, Lung consolidation Chest pain Qualifiers: Chest pain type: unspecified Qualified Code(s): R07.9 - Chest pain, unspecified Discharge Date/Time: 01/06/19 21:27 Interventions: ED Discharge Assessment Last Done: 01/06/19 21:16 Admit Date/Time: 01/06/19 20:51 Admit Provider: Masoud Tomlinson <Neal Mendez DO - Last Filed: 01/06/19 23:07> Cosign ED Attending Luisa Attestation: I was available for consultation during this patient's emergency department encounter
[2019-01-06] MEDS: SODIUM CHLORIDE 0.9% 1,000 ML 500 ML IV (18:50)
[2019-01-06 18:54] LABS: Add Manual Diff / Slide Review NO; Basophils Absolute Auto 0 /uL (0-100); Basophils Percent Auto 0.3 % (0-2); Eosinophils Absolute Auto 0 /uL (0-450); Lymphocytes Absolute Auto 900 /uL (1100-4500); Lymphocytes Percent Auto 7.9 % (25-40); Mean Corpuscular HGB Conc 33.4 % (30-36); Mean Corpuscular Hemoglobin 31.4 PG (26-34); Mean Corpuscular Volume 94.1 fL (80-100); Monocytes Absolute Auto 600 /uL (0-900); Monocytes Percent Auto 5.1 % (3-14); Neutrophils Absolute Auto 9500 /uL (1500-7000); Neutrophils Percent Auto 86.7 % (50-75); Platelet Count 282 X10^3/uL (150-400); Red Blood Cell Count 4.15 X10^6/uL (4.0-5.2); Red Cell Distribution Width 12.6 % (11.6-14.8); White Blood Cell Count 10.9 X10^3/uL (4.5-11.0)
[2019-01-06 19:06] LABS: Alanine Aminotransferase 13 IU/L (9-52); Albumin 4.3 g/dL (3.5-5.0); Albumin Globulin Ratio 1.2 (1.0-2.8); Alkaline Phosphatase 78 U/L (38-126); Aspartate Aminotransferase 25 IU/L (14-36); BUN Creatinine Ratio 17.1 (6-22); Bilirubin Total 1.4 mg/dL (0.2-1.3); Blood Urea Nitrogen 12 mg/dL (7-17); Calcium 9.4 mg/dL (8.4-10.2); Carbon Dioxide 26 mmol/L (22-32); Chloride 93 mmol/L (98-107); Creatine Kinase 36 U/L (30-135); Estimated Glomerular Filt Rate > 60.0 mL/min (>60); Globulin 3.7 g/dL (1.7-4.1); Glucose 148 mg/dL (80-110); HEMOLYSIS < 15 (0-50); Sodium 131 mmol/L (137-145)
[2019-01-06 19:18] LABS: Troponin I < 0.012 ng/mL (0.01-0.034)
[2019-01-06 21:16] VITALS: BP 163/82; PULSE 95; RESP 18; O2SAT 93
[2019-01-06 21:30] VITALS: BP 168/86; PULSE 100; RESP 20; TEMP 36.8; O2SAT 93
[2019-01-06 21:32] VITALS: BMI 18.2
--- NOTE | 2019-01-06 22:14 | PC.ADMIT ---
7[facility] Admission Note: The patient,Liudmila Puri,83 y/o, was given written information regarding hospital policies, unit procedures and contact persons. Patient's smoking status: Former smoker. Vital Signs - 8 hr 01/06/19 17:49 01/06/19 21:16 01/06/19 21:30 Temperature 98.9 F 98.2 F Pulse Rate 99 H 95 H 100 H Respiratory Rate 15 18 20 Blood Pressure 174/86 H 163/82 H 168/86 H Pulse Oximetry 93 93 93 Patient up from ED via stretcher. Pt was able to get off of the stretcher and ambulate to the ac bed, gait was steady. Pt denies SOB or Chest pain. Pt A&O, calm and cooperative. Pt voided and UA sent.
[2019-01-06 22:17] LABS: RBC Urine 0-1/HPF (0-5/HPF); WBC Urine 0-1/HPF (0-5/HPF)
[2019-01-06 22:18] LABS: Bacteria Urine Occasional (0-1); Culture Indicated Urine Cult Not Indicated; Squamous Epithelial Cell Urine 1-5 /HPF (0-5/HPF)
--- NOTE | 2019-01-06 22:18 | P.HP_ITS ---
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 Patient states she has had symptoms for 2 days that was progressive 2 days ago and yesterday and today have remained about the same. She has had associated complaints fevers the 1st day with associated chills and nausea and had 1 episode of dry heaves this morning. Patient reports positive cough but is unable to cough up phlegm. She did have an episode of chest pain last night which she described as squeezing in character and nonpleuritic. She describes this is a typical for her previous cardiac pain last but did take a nitroglycerin which did relieve the pain somewhat but has gone away altogether. She rode ports no sick contacts and has had no nasal congestion or sore throat, headaches or dizziness. She denies dyspnea at rest. She reports no abdominal pain and no further complaints of nausea vomiting. She reports no constipation or diarrhea and has no dysuria or incontinence. In the ER the patient is found to be afebrile at 98.9, heart rate of 99, blood pressure 174/86 and respirations of 15 and 93 % on room air. Twelve lead EKG which reveals sinus rhythm with ventricular rate of 76 with no ectopy or block, new ST depression in leads V5 and 6 compared with EKG of 06/11/2009. Chest x- rays taken which shows right middle lobe streaky opacities consistent with pneumonia with normal cardiac silhouette. Laboratory studies reveal a CBC within normal range with a white count of 10.9, hemoglobin 13.0 and hematocrit of 39.0 and platelets of 282. On chemistries she is hyponatremic with a sodium of 131 and chloride of 93 and has a potassium of 4.0 and preserved renal function with a BUN of 12 and creatinine of 0.9. Her nonfasting glucose is 148. She does have an elevated total bili at 1.4 with normal AST at 25, ALT of 13 and alkaline phosphatase 78. Her total CK is normal 36 and has a negative troponin at less than 0.012. The patient is admitted to the hospital with pneumonia and atypical chest pain. Patient History Medical History (Updated 01/06/19 @ 22:09 by Bhavana Pina RN) Asthma (Acute) Closed hip fracture (Acute) Coronary artery disease (Acute) HTN (hypertension) (Acute) Hydronephrosis (Acute) Hypothyroidism (Acute) Osteoporosis (Acute) Surgical History (Updated 01/06/19 @ 21:53 by IGLESIA Moyer) History of bilateral breast implants (Acute) History of breast biopsy (Acute) History of coronary angiogram (Acute) History of hip surgery (Acute) History of hysterectomy (Acute) History of renal stent (Acute) Status post removal of thyroid nodule (Acute) Family History (Updated 01/06/19 @ 21:56 by IGLESIA Moyer) Father Myocardial infarction Ruptured aortic aneurysm Mother Colon cancer Brother Medical history unknown Sister In good health Social History household members: none Smoking Status: Former smoker alcohol intake: current Family & Social History Family History (Updated 01/06/19 @ 21:56 by IGLESIA Moyer) Father Myocardial infarction Ruptured aortic aneurysm Mother Colon cancer Brother Medical history unknown Sister In good health Social History: household members none Prior Living Arrangements Apartment/Condo Safety & Behavioral: Feels Safe in Current Yes Environment Been Physically Hurt or No Threatened By a Person Suicidal Ideation Description None Suicide Plan Description No Plan Tobacco & Substance use: Smoking Status Former smoker alcohol intake current alcohol intake frequency 0-2 drinks per day Substance Use Type does not use Comment: The patient is here visiting her daughter, she lives in [place] ago and has routine cardiac follow-up there. [facility] and is a for the last 20 years. Father having had a heart attack and ruptured aortic aneurysm. Her mother from colon cancer. She has 2 brothers 1 is 97 and in good health and the other in his sleep from unknown cause. She has 1 sister also in good health. Smoking: The patient is a past smoker having smoked approximately 1 pack per week for approximately 3 years back in her 30s. Alcohol: The patient endorses 2-3 glasses wine nightly. Substance use: Patient denies recreation pharmaceuticals, herbal or cannabis products. Advanced directives: Patient has a formal advanced directive and states her wish to be FULL CODE. She designates her daughters Chapo and Myra to be her surrogate decision makers. Meds Home Medications Medication Instructions Recorded Confirmed Type aspirin 3 tab PO PRN PRN 01/06/19 01/06/19 History levothyroxine 25 mcg PO DAILY 01/06/19 01/06/19 History nitroglycerin 1 tab SUBLINGUAL [id number] PRN 01/06/19 01/06/19 History Allergies Allergy/AdvReac Type Severity Reaction Status Date / Time gentamicin Allergy Hives Verified 01/06/19 22:07 Penicillins Allergy unknown Verified 01/06/19 22:07 sulfamethoxazole Allergy Hives Verified 01/06/19 22:07 trimethoprim Allergy Hives Verified 01/06/19 22:07 albuterol AdvReac SOB, Verified 01/06/19 22:07 shaking lisinopril AdvReac Angioedema Verified 01/06/19 22:07 morphine AdvReac difficult Verified 01/06/19 22:07 to wake and pt thought she was going to Exam Vital Signs (past 8 hours): - 01/06/19 17:49 01/06/19 21:16 Temperature 98.9 F Pulse Rate 99 H 95 H Respiratory Rate 15 18 Blood Pressure 174/86 H 163/82 H Pulse Oximetry 93 93 Oxygen Delivery Method Room Air Narrative Exam Narrative: GENERAL APPEARANCE: well developed, very slender with reduced muscle mass, BMI of 18.3, in no acute distress. HEAD: Normocephalic, atraumatic, no scalp lesions. EYES: pupils equal, round, reactive to light and accommodation, sclera non- icteric, extraocular movement intact without nystagmus. EARS: normal external structures, no ear pain NOSE: sinuses non tender to percussion, no rhinorrhea ORAL CAVITY: mucosa moist without lesions or exudate, she has her own dentition, palate normal, tongue in midline. THROAT: normal, no erythema, no exudate, pharynx normal, uvula midline. NECK/THYROID: neck supple, no jugular venous distention, no carotid bruit, no th yromegaly or palpable nodules, trachea midline. LYMPH NODES: no cervical or supraclavicular lymphadenopathy. SKIN: warm and dry, no suspicious lesions, no rashes, good turgor. HEART: regular rate and rhythm, S1-S2 1/6 systolic murmur murmur loudest at the right upper sternal border, no rubs or gallops, 1+ dorsalis pedis pulses bilateral, no edema LUNGS: Scattered coarseness on auscultation, coughing with deep inspiration, significant wheezing with cough, no crackles noted CHEST: Symmetrical movement, no accessory muscle use, no pain to AP and lateral compression. ABDOMEN: Soft, no distention, no epigastric or abdominal tenderness on palpation, no guarding or peritoneal signs, no organomegaly, no flank or suprapubic tenderness, active bowel tones. BACK: Normal curvature, nontender to palpation EXTREMITIES: moves all extremities, strength is 5/5 and symmetrical, well perfused. NEUROLOGIC: AAO x4, cranial nerves II-XII grossly intact , motor strength normal upper and lower extremities, sensory exam intact to light touch, hearing grossly normal to speech. PSYCH: alert and cooperative, cognitive function intact, good eye contact, stable mood with congruent affect Objective Labs Result Diagrams: 01/06/19 18:45 01/06/19 18:45 Labs: Laboratory Results - last 24 hr 01/06/19 01/06/19 18:45 18:45 WBC 10.9 RBC 4.15 Hgb 13.0 Hct 39.0 MCV 94.1 MCH 31.4 MCHC 33.4 RDW 12.6 Plt Count 282 Neut % (Auto) 86.7 H Lymph % (Auto) 7.9 L [place] % (Auto) 5.1 Eos % (Auto) 0.0 L Baso % (Auto) 0.3 Neut # (Auto) 9500 H Lymph # (Auto) 900 L [place] # (Auto) 600 Eos # (Auto) 0 Baso # (Auto) 0 Sodium 131 L Potassium 4.0 Chloride 93 L Carbon Dioxide 26 BUN 12 Creatinine 0.70 Estimated GFR > 60.0 BUN/Creatinine Ratio 17.1 Glucose 148 H Calcium 9.4 Total Bilirubin 1.4 H AST 25 ALT 13 Alkaline Phosphatase 78 Total Creatine Kinase 36 CK-MB (CK-2) TNP CK-MB (CK-2) Rel Index TNP Troponin I < 0.012 Total Protein 8.0 Albumin 4.3 Globulin 3.7 Albumin/Globulin Ratio 1.2 Assessment & Plan Assessment & Plan narrative: The patient is admitted to the hospital with right middle lobe pneumonia and complaints of atypical chest pain that has been progressive over the last 2 days. 1. Acute community acquired pneumonia, present on admission. -patient with symptoms of 2 days with worsening cough, congestion, fevers and chills and nausea, coarse breath sounds and wheezing on exam without prior history of pulmonary disease. -white blood cell count is 10.9 with elevated neutrophils at 9500 and 86.7%. The patient does not meet sepsis criteria. -patient has multiple drug allergies not specified stated she is allergic to everything, the patient will receive levofloxacin 750 mg daily. -RT to consult, evaluate treat. -DuoNeb every 6 hours as needed with albuterol nebulizer every 2 hours as needed.-will obtain a procalcitonin now and in the morning and follow CBC. -normal saline 75 cc/hour. 2. Chronic stable angina, active -she experienced atypical chest pain described as squeezing which was different from her typical cardiac pain. She follows with her engineering writer in [place] routinely. -total CK is 36 and troponin was negative at less than 0.012. -12 lead EKG reveals sinus rhythm with new ST depression in V5 and 6 compared with tracing obtained in 2008. Cardiology consulted by ER provider who indicated conservative treatment. -patient had untoward response to morphine, nitroglycerin 0.4 mg sublingual Q 5 minutes x3 as needed for chest pain. -repeat troponin at midnight and in the morning. -obtain echocardiogram -obtain stress test 3. Chronic Hypothyroidism, stable. -patient is status post excision thyroid nodule. -continue levothyroxine 25 mcg daily with 50 mcg on Mondays and Fridays. -will check thyroid level. 4. Chronic Daily alcohol consumption, presumed stable. -patient endorses drinking 2-3 glasses of wine nightly. -will monitor for withdrawal symptoms with CIWA evaluations. The patient is admitted to the hospital due to the severity of her symptoms, risk of complications and adverse events. She will be admitted as an inpatient with pneumonia with expected length of stay to be greater than 2 midnights. Scores GCS Jelani coma scale eye opening: Spontaneous Ejlani coma scale verbal response: Orientated [place] coma scale motor response: Obey commands Jelani coma scale total score: 15 Quality VTE Deep Vein Thrombosis/Pulmonary Embolism Present on Admission: No
[2019-01-06] MEDS: levoFLOXacin 750 MG/150 ML PIGGYBACK 100 MG IV (22:57)
[2019-01-06] MEDS: SODIUM CHLORIDE 0.9% 1,000 ML 75 ML IV (22:57)
[2019-01-06] MEDS: ASPIRIN EC 81 MG TABLET PO (22:57)
[2019-01-06 23:50] VITALS: BP 157/80; PULSE 96; RESP 18; TEMP 37.1; O2SAT 93
[2019-01-06 23:58] LABS: Procalcitonin 0.49 ng/mL (<0.5)
[2019-01-07] VITALS (7 sets, daily range): BP systolic 116–156; BP diastolic 53–76; PULSE 71–91; RESP 12–18; TEMP 36.7–37.9; O2SAT 93–98; BMI 18.2
--- NOTE | 2019-01-07 | DI.NM.S_ITS ---
PROCEDURE: NM LEONILA PERF SPECT SINGLE STUDY Pharmacological myocardial perfusion SPECT with gated imaging and ejection fraction RADIOPHARMACEUTICAL: 21.3 mCi Tc-99m sestamibi IV at peak exercise. INDICATIONS: chest pain TECHNIQUE: Radiopharmaceutical was injected at peak stress test. SPECT images were obtained, with perfusion images in short axis, horizontal long axis, and vertical long axis views. Gated images were reviewed using Web[employer] software. COMPARISON: Study from 2009 CARDIAC STRESS: A pharmacological stress test was performed by the patient under the supervision of an attending staff. Pharmacological agent: Lexiscan Reversal agent: Not used Hemodynamic data: There is normal blood pressure and heart response to pharmacological agent. Symptoms: Patient denied anginal chest pain during exercise. EKG: Baseline ECG shows nonspecific ST abnormalities with less than [address] depression inferolaterally. After Lexiscan infusion, this becomes slightly more prominent. Overall the change is about 0.5 mm and not significant. FINDINGS: Raw data: There is good labeling of myocardium by radiotracer. No significant motion artifacts. Wahv-ad-tmjil ratio is 0.30 (normal is less than 0.38 for sestamibi tracer, and less than 0.50 for thallium tracer). Shadows of the bilateral breast implants are noted. Left ventricular function: Gated images demonstrate normal left ventricle wall thickening. No segmental wall motion abnormalities. Left ventricle end diastolic volume is 62 mL. Left ventricle stress ejection fraction is >75% ; normal values are above 45%. Myocardial perfusion: There is a small, mild defect in the anteroseptal wall which resolves on prone imaging, consistent with breast attenuation artifact. Otherwise normal distribution of activity in the left ventricular myocardium, without focal perfusion defects. IMPRESSION: -This is a normal, stress-only, perfusion study. -No change compared to the prior study in 2008. Dictated by: Timmy Clement M.D. on 01/07/2019 at 16:14 Approved by: Timmy Clement M.D. on 01/07/2019 at 16:22
[2019-01-07 00:14] LABS: INR 1.1 (0.9-1.3); Prothrombin Time 12.7 SECONDS (10.1-12.7)
[2019-01-07 00:16] LABS: PTT Partial Thromboplastin Tim 34 SECONDS (26.4-36.2)
[2019-01-07] MEDS: ACETAMINOPHEN 325 MG TABLET 650 MG PO ×2 (00:33→14:20)
[2019-01-07 05:50] LABS: Add Manual Diff / Slide Review NO; Basophils Absolute Auto 0 /uL (0-100); Basophils Percent Auto 0.6 % (0-2); Eosinophils Absolute Auto 0 /uL (0-450); Eosinophils Percent Auto 0.1 % (2-4); Hemoglobin 11.6 g/dL (12.0-16.0); Lymphocytes Absolute Auto 700 /uL (1100-4500); Lymphocytes Percent Auto 9.1 % (25-40); Mean Corpuscular HGB Conc 34.1 % (30-36); Mean Corpuscular Hemoglobin 31.9 PG (26-34); Mean Corpuscular Volume 93.5 fL (80-100); Monocytes Absolute Auto 500 /uL (0-900); Monocytes Percent Auto 6.2 % (3-14); Neutrophils Absolute Auto 6500 /uL (1500-7000); Platelet Count 258 X10^3/uL (150-400); Red Blood Cell Count 3.63 X10^6/uL (4.0-5.2); Red Cell Distribution Width 12.4 % (11.6-14.8); White Blood Cell Count 7.7 X10^3/uL (4.5-11.0)
[2019-01-07 06:06] LABS: BUN Creatinine Ratio 15.7 (6-22); Blood Urea Nitrogen 11 mg/dL (7-17); Calcium 8.4 mg/dL (8.4-10.2); Carbon Dioxide 25 mmol/L (22-32); Chloride 98 mmol/L (98-107); Cholesterol 150 mg/dL (140-199); Estimated Glomerular Filt Rate > 60.0 mL/min (>60); Glucose 107 mg/dL (80-110); HDL Cholesterol 63 mg/dL (40-60); HEMOLYSIS < 15 (0-50); LDL Cholesterol Calculated 75 mg/dL (<100); Potassium 3.7 mmol/L (3.4-5.1); Sodium 131 mmol/L (137-145); Triglycerides 59 mg/dL (35-150)
[2019-01-07 06:15] LABS: Troponin I < 0.012 ng/mL (0.01-0.034)
[2019-01-07 06:19] LABS: Procalcitonin 0.92 ng/mL (<0.5)
[2019-01-07 06:45] LABS: TSH w/ Reflex to FT4 5.61 uIU/mL (0.47-4.68)
[2019-01-07 07:10] LABS: Free T4, Direct Thyroxine 1.48 ng/dL (0.78-2.19)
--- NOTE | 2019-01-07 07:18 | PM.PN.1 ---
Subjective Date Patient Seen: 01/07/19 Time Patient Seen: 08:24 Interval history: She is seen today to follow up her chest pain with history of coronary artery disease, pneumonia and hyponatremia. She is also hypothyroid. The sodium level is 131. The TSH is 5.61. Her white blood count dropped from 10.9 down to 7.7. I reviewed her chest x-ray and read it as showing streaky bilateral infiltrates with breast implants in both sides. I read her EKG is showing an old anteroseptal VT with ST depression in the lateral leads. Her echocardiogram and stress test are pending. The troponins continue normal at less than 0.012. She is visiting her family from [place]. Exam Vital Signs (past 8 hours): - 01/06/19 23:50 01/07/19 05:24 Temperature 98.8 F 98.1 F Pulse Rate 96 H 73 Respiratory Rate 18 18 Blood Pressure 157/80 H 116/53 L Pulse Oximetry 93 93 Oxygen Delivery Method Room Air Oxygen Flow Rate 0 Narrative Exam Narrative: She is alert and oriented x3 without apparent distress. Heart is regular rate and rhythm without murmur. Lungs have crackles at the left base. Extremities have no ankle edema. Objective Labs Result Diagrams: 01/07/19 05:21 01/07/19 05:21 Labs: Laboratory Results - last 24 hr 01/06/19 01/06/19 01/06/19 18:45 18:45 18:45 WBC 10.9 RBC 4.15 Hgb 13.0 Hct 39.0 MCV 94.1 MCH 31.4 MCHC 33.4 RDW 12.6 Plt Count 282 Neut % (Auto) 86.7 H Lymph % (Auto) 7.9 L [place] % (Auto) 5.1 Eos % (Auto) 0.0 L Baso % (Auto) 0.3 Neut # (Auto) 9500 H Lymph # (Auto) 900 L [place] # (Auto) 600 Eos # (Auto) 0 Baso # (Auto) 0 PT INR APTT Sodium 131 L Potassium 4.0 Chloride 93 L Carbon Dioxide 26 BUN 12 Creatinine 0.70 Estimated GFR > 60.0 BUN/Creatinine Ratio 17.1 Glucose 148 H Calcium 9.4 Total Bilirubin 1.4 H AST 25 ALT 13 Alkaline Phosphatase 78 Total Creatine Kinase 36 CK-MB (CK-2) TNP CK-MB (CK-2) Rel Index TNP Troponin I < 0.012 Total Protein 8.0 Albumin 4.3 Globulin 3.7 Albumin/Globulin Ratio 1.2 Triglycerides Cholesterol LDL Cholesterol, Calc HDL Cholesterol Procalcitonin 0.49 TSH Urine RBC Urine WBC Ur Squamous Epith Cells Urine Bacteria Ur Culture Indicated? 01/06/19 01/06/19 01/07/19 21:45 23:55 05:21 WBC RBC Hgb Hct MCV MCH MCHC RDW Plt Count Neut % (Auto) Lymph % (Auto) [place] % (Auto) Eos % (Auto) Baso % (Auto) Neut # (Auto) Lymph # (Auto) [place] # (Auto) Eos # (Auto) Baso # (Auto) PT 12.7 INR 1.1 APTT 34 Sodium Potassium Chloride Carbon Dioxide BUN Creatinine Estimated GFR BUN/Creatinine Ratio Glucose Calcium Total Bilirubin AST ALT Alkaline Phosphatase Total Creatine Kinase CK-MB (CK-2) CK-MB (CK-2) Rel Index Troponin I Total Protein Albumin Globulin Albumin/Globulin Ratio Triglycerides Cholesterol LDL Cholesterol, Calc HDL Cholesterol Procalcitonin TSH 5.61 H Urine RBC 0-1/hpf Urine WBC 0-1/hpf Ur Squamous Epith Cells 1-5 /hpf Urine Bacteria Occasional (0-1) Ur Culture Indicated? Cult not indicated 01/07/19 01/07/19 01/07/19 05:21 05:21 05:21 WBC 7.7 RBC 3.63 L Hgb 11.6 L Hct 34.0 L MCV 93.5 MCH 31.9 MCHC 34.1 RDW 12.4 Plt Count 258 Neut % (Auto) 84.0 H Lymph % (Auto) 9.1 L [place] % (Auto) 6.2 Eos % (Auto) 0.1 L Baso % (Auto) 0.6 Neut # (Auto) 6500 Lymph # (Auto) 700 L [place] # (Auto) 500 Eos # (Auto) 0 Baso # (Auto) 0 PT INR APTT Sodium 131 L Potassium 3.7 Chloride 98 Carbon Dioxide 25 BUN 11 Creatinine 0.70 Estimated GFR > 60.0 BUN/Creatinine Ratio 15.7 Glucose 107 Calcium 8.4 Total Bilirubin AST ALT Alkaline Phosphatase Total Creatine Kinase CK-MB (CK-2) CK-MB (CK-2) Rel Index Troponin I < 0.012 Total Protein Albumin Globulin Albumin/Globulin Ratio Triglycerides 59 Cholesterol 150 LDL Cholesterol, Calc 75 HDL Cholesterol 63 H Procalcitonin 0.92 H TSH Urine RBC Urine WBC Ur Squamous Epith Cells Urine Bacteria Ur Culture Indicated? Assessment & Plan Assessment & Plan narrative: 1. Acute community acquired pneumonia, present on admission. -patient with symptoms of 2 days with worsening cough, congestion, fevers and chills and nausea, crackles on exam without prior history of pulmonary disease. -white blood cell count of 10.9 on admission, now down to to 7.7. The patient does not meet sepsis criteria. The procalcitonin is mildly elevated at 0.92. -patient has multiple drug allergies not specified stated she is allergic to everything, will cautiously continue levofloxacin 750 mg daily. -RT to consult, evaluate treat. -DuoNeb every 6 hours as needed with albuterol nebulizer every 2 hours as needed. -normal saline 75 cc/hour. 2. Chronic stable angina, active -she experienced atypical chest pain described as squeezing which was different from her typical cardiac pain. She follows with her aboriginal education worker coordinator in [place] routinely. -on admission the total CK is 36 and troponin was negative at less than 0.012. -12 lead EKG reveals sinus rhythm with new ST depression in V5 and 6 compared with tracing obtained in 2009. Cardiology consulted by ER provider who indicated conservative treatment. -patient had untoward response to morphine, nitroglycerin 0.4 mg sublingual Q 5 minutes x3 as needed for chest pain. -repeat troponin continue less than 0.012. -obtain echocardiogram -obtain stress test with nuclear imaging 3. Chronic Hypothyroidism, stable. -patient is status post excision thyroid nodule. -continue levothyroxine and increase level to 50 mcg due to elevated TSH. -TSH high at 5.61 4. Chronic Daily alcohol consumption, presumed stable. -patient endorses drinking 2-3 glasses of wine nightly. -will monitor for withdrawal symptoms with CIWA evaluations. Quality VTE Deep Vein Thrombosis/Pulmonary Embolism Present on Admission: No
[2019-01-07] MEDS: ENOXAPARIN 40 MG/0.4 ML SYRINGE SUBCUT (09:26)
[2019-01-07] MEDS: ASPIRIN EC 81 MG TABLET PO (09:26)
[2019-01-07 10:35] LABS: Adenovirus Not Detected (Not Detect); Bordetella pertussis Not Detected (Not Detect); Chlamydophila pneumoniae Not Detected (Not Detect); Coronavirus 229E Not Detected (Not Detect); Coronavirus HKU1 Not Detected (Not Detect); Coronavirus NL 63 Not Detected (Not Detect); Coronavirus OC43 Not Detected (Not Detect); Human Metapneumovirus Not Detected (Not Detect); Human Rhinovirus/Enterovirus Not Detected (Not Detect); Influenza A Not Detected (Not Detect); Influenza B Not Detected (Not Detect); Mycoplasma pneumoniae Not Detected (Not Detect); Parainfluenza Virus 1 Not Detected (Not Detect); Parainfluenza Virus 2 Not Detected (Not Detect); Parainfluenza Virus 3 Not Detected (Not Detect); Parainfluenza Virus 4 Not Detected (Not Detect); Respiratory Syncytial Virus Not Detected (Not Detect)
--- NOTE | 2019-01-07 12:30 | PM.TREADMILL ---
Cardiac Stress Test Report Referral & Results Date Patient Seen: 01/07/19 Time Patient Seen: 12:30 Requesting provider: Noelle Hastings Indication: Chest pain Rest ECG: Unremarkable Procedure Note: After both written and verbal informed consent the patient had an IV started by the diagnostic imaging RN, and then was hooked up to the treadmill monitoring system. The Lexiscan material, and then the Cardiolite tracer, were administered sequentially. An additional 3 min was spent monitoring the patient while supine on the gurney. The patient had a normal response to all infused materials. Impression: Normal response to infuse materials. Please see perfusion imaging report for details regarding possible ischemia Please note: Actual ECG tracings can be found in the PACS system.
--- NOTE | 2019-01-07 12:40 | PC.NURSE ---
Pt has denied chest pain thus far. She just went down for her myocardial perfusion test. Daughter will be back to visit her. LS diminished but clear.
--- NOTE | 2019-01-07 14:34 | CM.DANOTE ---
Addendum entered by Louisa Lloyd LPN 01/07/19 14:51: Is noted that CIWA now scored at 5 by CHITO Harper. Original Note: Discharge Planning/Care Management DCP: assessment: case received, EMR reviewed and met with pt. Introduced self and role. Pt was found sitting up in bed, looking flushed and hands notably tremorous. Emesis bag on tray. CHITO Harper was just giving pt tylenol and noted that pt had a fever. Pt is an 83 year old female who admitted last night to care of hospitalist team. INPT admission status: confirmed by UR CHITO Liriano Payer: Medicare and [facility]. Pt confirms she owns the home in [place] that is listed on the face sheet but that her daughter Saira Oropeza is now living there. Pt has been visiting Saira and was scheduled to return to her home in [place] but instead ended up in the hospital. She notes she is thankful for the care here. Pt confirms she sees a equal opportunity officer in [place] regularly and that she has an appt set up for early next week. Her daughter Myra, who lives in [place], has alerted the equal opportunity officer's clinic to pt's admission here. OF note: pt is on CIWA protocol as reports daily use of 2-3 glasses of wine daily. Most recent CIWA score: 0 : early this morning. Discussed case with CHITO Harper. P: follow prn as workup proceeds and d/c issues are clearer. CM Discharge Assessment Start: 01/07/19 14:32 Freq: Status: Active Protocol: Document 01/07/19 14:33 ITV (Rec: 01/07/19 14:34 ITV [id number]) Discharge Planning Assessment Advance Directives? No History Provided By Patient Medical Record Independent with ADL's Yes Is patient alert and oriented? Yes Whiteboard Updated in Patient Room with Yes name and ext. # of Gasoline Finisher Review Status In Process Next Review Type Continued Stay Review
[2019-01-07] MEDS: SODIUM CHLORIDE 0.9% 1,000 ML 75 ML IV (15:32)
--- NOTE | 2019-01-07 17:50 | PC.NURSE ---
Addendum entered by Pita Garzon R.N. 01/07/19 22:42: Pt inquires of this teletypewriter installer what meds will be given this evening. Informed pt only levaquin iv to treat pneumonia. Pt describes near fatal reaction to sedating meds 40 years ago and requests not be given any of these. Informed pt these are not ordered. Continues to rest quietly without complaints in bed watching television. No signs or symptoms of alcohol withdrawal in this patient. Continuous pulse oximeter in place. Original Note: Awake, alert quietly resting in bed @ shift exchange. Denies chest pain or any other concerns or complaints. Room air 95%. Admits to occasional cough with productive sputum, but this was not witnessed during assessment. Fine crackles to bases BL. Tele in place. Encouraged to call for needs. Verbalizes understanding to call for assistance when needing/desiring out of bed.
[2019-01-07] MEDS: levoFLOXacin 750 MG/150 ML PIGGYBACK 100 MG IV (20:52)
[2019-01-08 05:37] VITALS: BP 140/73; PULSE 82; RESP 16; TEMP 36.8; O2SAT 95
[2019-01-08 05:46] LABS: Alanine Aminotransferase 17 IU/L (9-52); Albumin 3.2 g/dL (3.5-5.0); Alkaline Phosphatase 57 U/L (38-126); Aspartate Aminotransferase 19 IU/L (14-36); BUN Creatinine Ratio 14.3 (6-22); Bilirubin Total 0.7 mg/dL (0.2-1.3); Blood Urea Nitrogen 10 mg/dL (7-17); Calcium 8.6 mg/dL (8.4-10.2); Carbon Dioxide 26 mmol/L (22-32); Chloride 102 mmol/L (98-107); Estimated Glomerular Filt Rate > 60.0 mL/min (>60); Globulin 3.1 g/dL (1.7-4.1); Glucose 94 mg/dL (80-110); HEMOLYSIS < 15 (0-50); Magnesium 1.6 mg/dL (1.6-2.3); Potassium 3.4 mmol/L (3.4-5.1); Sodium 135 mmol/L (137-145); Total Protein 6.3 g/dL (6.3-8.2)
[2019-01-08] MEDS: LEVOTHYROXINE 50 MCG TABLET PO (05:58)
[2019-01-08 06:10] LABS: Procalcitonin 0.79 ng/mL (<0.5)
--- NOTE | 2019-01-08 07:47 | PM.DS.1 ---
History of Present Illness Date Patient Seen: 01/06/19 Chief complaint: BODY ACHES, CHILLS, BACK PAIN Narrative: Written by Masoud PAREKH: Liudmila Puri is an 83-year-old female patient with history significant for heart disease under the care of Cardiology, hypothyroidism and history of hydration for [place] status post renal stent presents to the ER complaints low back pain, productive cough with congestion. Patient states she has had symptoms for 2 days that was progressive 2 days ago and yesterday and today have remained about the same. She has had associated complaints fevers the 1st day with associated chills and nausea and had 1 episode of dry heaves this morning. Patient reports positive cough but is unable to cough up phlegm. She did have an episode of chest pain last night which she described as squeezing in character and nonpleuritic. She describes this is a typical for her previous cardiac pain last but did take a nitroglycerin which did relieve the pain somewhat but has gone away altogether. She rode ports no sick contacts and has had no nasal congestion or sore throat, headaches or dizziness. She denies dyspnea at rest. She reports no abdominal pain and no further complaints of nausea vomiting. She reports no constipation or diarrhea and has no dysuria or incontinence. In the ER the patient is found to be afebrile at 98.9, heart rate of 99, blood pressure 174/86 and respirations of 15 and 93 % on room air. Twelve lead EKG which reveals sinus rhythm with ventricular rate of 76 with no ectopy or block, new ST depression in leads V5 and 6 compared with EKG of 06/11/2009. Chest x-rays taken which shows right middle lobe streaky opacities consistent with pneumonia with normal cardiac silhouette. Laboratory studies reveal a CBC within normal range with a white count of 10.9, hemoglobin 13.0 and hematocrit of 39.0 and platelets of 282. On chemistries she is hyponatremic with a sodium of 131 and chloride of 93 and has a potassium of 4.0 and preserved renal function with a BUN of 12 and creatinine of 0.9. Her nonfasting glucose is 148. She does have an elevated total bili at 1.4 with normal AST at 25, ALT of 13 and alkaline phosphatase 78. Her total CK is normal 36 and has a negative troponin at less than 0.012. The patient is admitted to the hospital with pneumonia and atypical chest pain. Discharge Providers Date of admission: 01/06/19 20:51 Discharge Date: 01/08/19 Consults: 01/06/19 21:31 Consult to Dietitian, Adult Routine Comment: Reason For Exam: poor appatitie 01/06/19 21:32 Consult to Discharge Planning Routine Comment: visiting from [place] 01/06/19 21:42 Consult to Respiratory Therapy Evaluate & Treat Comment: [facility] Physician Instructions: Evaluate and treat Discharge provider: Jadyn Howe DO Summary Hospital Course: Liudmila Puri is an 83-year-old female patient a past medical history significant for possible heart disease followed by Cardiology in [place], daily alcohol use, hypothyroidism, and hydronephrosis status post renal stent who presented for low back pain and productive cough with congestion. 1. Acute community acquired pneumonia, present on admission. Resolving. -Patient presented with progressive worsening cough, congestion, fevers, chills, and nausea. The patient did not meet sepsis criteria. -Chest x-ray demonstrated streaky middle lobe opacity on lateral view. -Complete pneumonia workup ordered including: Respiratory viral PCR negative. Strep pneumonia and legionella urine antigens pending and to be followed by PCP. Sputum and blood cultures not performed. -Initial WBC 10.9. Initial PCT 0.49 and peaked at 0.92, now trending down. -Continued respiratory therapy for evaluation and treatment as needed. Continued DuoNeb every 6 hours as needed with albuterol nebulizer every 2 hours as needed. -Continued IV fluids until adequately hydrated. -Patient has multiple drug allergies not specified. Continue levofloxacin 750 mg daily to complete 5 day course. 2. Stable angina, chronic, present on admission. Stable. -Patient presented with atypical chest pain described as squeezing which was different from her typical cardiac pain. 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 -EKG demonstrated ST depression in V5 and V6 compared to previous EKG in 2008. Cardiology consulted by ER provider who indicated conservative treatment. -Serial troponins were negative. -Patient had untoward response to morphine, nitroglycerin 0.4 mg sublingual every 5 minutes x 3 as needed for chest pain. -Echocardiogram demonstrated normal LV and RV function with EF 65-70%, no change in mild aortic regurgitation, mild to moderate tricuspid regurgitation with an increase in TR severity, RVSP 34 mmHg based on an estimated right atrial pressure of 3 mm Hg and multiple large left renal cysts were noted. -Nuclear medicine stress test demonstrated normal perfusion study without change compared to prior study in 2009. 3. Hypothyroidism, chronic, present on admission. Stable. -Patient is status post excision thyroid nodule. -TSH 5.61 and free T4 1.48 indicative of subclinical hypothyroidism. -Continue levothyroxine and increased to 50 mcg daily. Recommended repeat thyroid function testing in 4-6 weeks with PCP. 4. Chronic alcohol use, present on admission. Stable. -Patient endorses drinking 2-3 glasses of wine nightly. -Monitored closely for withdrawal symptoms. Patient had no signs of alcohol withdrawal while hospitalized. -Discussed alcohol use and encouraged patient to cut back. Exam Vital Signs (past 8 hours): - 01/08/19 05:37 Temperature 98.3 F Pulse Rate 82 Respiratory Rate 16 Blood Pressure 140/73 Pulse Oximetry 95 Oxygen Delivery Method Room Air Oxygen Flow Rate 0 Narrative Exam Narrative: General: Elderly thin and frail female sitting in bed and in no acute distress, appropriately interactive HEENT: Normocephalic, atraumatic. External ears without defect. Pupils equal, round, and reactive to light. Anicteric sclerae, moist conjunctivae, and no lid lag. Large nevus on right lower eyelid. Neck: Supple with full range of motion. No jugular venous distension. No bruits. No lymphadenopathy or thyromegaly. Cardiovascular: Regular rate and rhythm without murmurs, rubs, or gallops appreciated Pulmonary: Clear to auscultation bilaterally with crackle on right base. No wheeze or rhonchi. Normal respiratory effort with no use of accessory muscles. Abdomen: Soft, scaphoid, bowel sounds present, nontender, nondistended. No hepatosplenomegaly or masses appreciated. Extremities: No clubbing, cyanosis, or edema. Skin: Normal temperature, turgor, and texture; no rash, ulcers, or subcutaneous nodules appreciated. Neurological: Cranial nerves grossly intact. Psychiatric: Normal mood and affect. Alert and oriented to person, place, and time. Objective Labs Result Diagrams: 01/07/19 05:21 01/08/19 05:12 Labs: Laboratory Results - last 24 hr 01/07/19 01/07/19 01/08/19 05:21 09:16 05:12 Sodium Potassium Chloride Carbon Dioxide BUN Creatinine Estimated GFR BUN/Creatinine Ratio Glucose Calcium Magnesium Total Bilirubin AST ALT Alkaline Phosphatase Total Protein Albumin Globulin Albumin/Globulin Ratio Procalcitonin 0.79 H Free T4 1.48 Chlamy pneumoniae PCR Not detected Adenovirus (PCR) Not detected B.parapertussis DNA PCR Not detected Coronavirus OC43 (PCR) Not detected Coronavirus HKU1 (PCR) Not detected Coronavirus 229E (PCR) Not detected Coronavirus NL63 (PCR) Not detected Human Metapneumovir PCR Not detected Influenza Type A (PCR) Not detected Influenza Type B (PCR) Not detected M. pneumoniae (PCR) Not detected Parainfluenza 1 (PCR) Not detected Parainfluenza 2 (PCR) Not detected Parainfluenza 3 (PCR) Not detected Parainfluenza 4 (PCR) Not detected RSV (PCR) Not detected Entero/Rhino (PCR) Not detected 01/08/19 05:12 Sodium 135 L Potassium 3.4 Chloride 102 Carbon Dioxide 26 BUN 10 Creatinine 0.70 Estimated GFR > 60.0 BUN/Creatinine Ratio 14.3 Glucose 94 Calcium 8.6 Magnesium 1.6 Total Bilirubin 0.7 AST 19 ALT 17 Alkaline Phosphatase 57 Total Protein 6.3 Albumin 3.2 L Globulin 3.1 Albumin/Globulin Ratio 1.0 Procalcitonin Free T4 Chlamy pneumoniae PCR Adenovirus (PCR) B.parapertussis DNA PCR Coronavirus OC43 (PCR) Coronavirus HKU1 (PCR) Coronavirus 229E (PCR) Coronavirus NL63 (PCR) Human Metapneumovir PCR Influenza Type A (PCR) Influenza Type B (PCR) M. pneumoniae (PCR) Parainfluenza 1 (PCR) Parainfluenza 2 (PCR) Parainfluenza 3 (PCR) Parainfluenza 4 (PCR) RSV (PCR) Entero/Rhino (PCR) Discharge Plan Discharge Plan Patient Disposition: Home Discharge comment: You are being discharged home. Please follow-up with your PCP as soon as possible regarding your hospitalization. You have been prescribed levofloxacin 750 mg for 2 additional days to complete a 5 day course to treat your pneumonia. Your levothyroxine has been increased to 50 mcg daily and your thyroid function will need to be rechecked in 4-6 weeks by your PCP. Your nuclear medicine stress test, echocardiogram, EKG, and cardiac enzymes did not demonstrate heart attack or impending heart attack. Discharge Med Rec/Prescriptions Prescriptions: New levofloxacin 750 mg tablet 750 mg PO DAILY Qty: 2 RF: 0 Continued aspirin 81 mg Tablet,Chewable 3 tab PO PRN PRN (Reason: Chest Pain) RF: 0 nitroglycerin 0.4 mg tablet 1 tab Sublingual [id number] PRN (Reason: Chest Pain) RF: 0 Changed levothyroxine 25 mcg Tablet 50 mcg PO DAILY Qty: 0 RF: 0 Provider Discharge Instructions Diet: Low-fat, Low-sodium and Low-cholesterol Activity: Activity as tolerated Visit Report/Discharge Packet Instructions: DI for Pneumonia -- Adult Discharge Data Attending Provider: Masoud Tomlinson Admit Date/Time: 01/06/19 20:51 Quality VTE Deep Vein Thrombosis/Pulmonary Embolism Present on Admission: No
[2019-01-08] MEDS: levoFLOXacin 250 MG TABLET 750 MG PO (09:19)
--- NOTE | 2019-01-08 09:41 | PC.NURSE ---
Day Shift Float- Reviewed discharge summary packet with patient and her daughter at bedside. All questions answered. Pt states she plans to fly our Thursday back to [place] and with follow up with her PCP and [facility] [employer] in [place]. [facility] [place]. Pt left with all belongings. Pt left unit via wheelchair in no distress with HUGO and her daughter at 0940.
--- NOTE | 2019-01-08 11:29 | CM.DPNOTE ---
DCP: continued: Case discussed this morning in Team Rounds. Dr. Howe noted she was planning to d/c pt to home setting/daughter's home and pt was planning to return to [place] on Thursday. Went to room to check in with pt after Rounds...CHITO Medina confirmed she had left for home in company of her daughter at 0915.
[2019-01-11 12:55] LABS: Anti-Streptolysin O Antibody 58 IU/mL (< 200)
== END 2019-01-08 09:40 | disposition home or self-care (01) | DRG 194 ==
LOC: ED 20:32 → AC 01-07 07:21
PROVIDERS: Internal Medicine; Admitting Provider Nurse Practitioner Adult Health; Emergency Provider Nurse Practitioner; Visit Provider Nurse Practitioner Adult Health
DX: J18.9 Pneumonia, unspecified organism (principal); E87.1 Hypo-osmolality and hyponatremia; I20.9 Angina pectoris, unspecified; I25.10 Atherosclerotic heart disease of native coronary artery without angina pectoris; E03.9 Hypothyroidism, unspecified; I10 Essential (primary) hypertension; Z87.891 Personal history of nicotine dependence
CPT/HCPCS: 36415; 36591; 71046; 78451; 80048; 80053; 80061; 81015; 82550; 83735; 84145; 84439; 84443; 84484; 85025; 85610; 85730; 86060; 87449; 87633; 93005; 93016; 93017; 93018; 93306; 94760; 96360; 96361; 99283; 99285; A9502; J1650; J1956; J2785